=== PATIENT | female | born 2000 | race American Indian/Alaskan Native ===

== ENCOUNTER 2021-08-12 03:42 | Outpatient (CLI) | payer OTHER ==
[2021-08-12 05:03] VITALS: BP 103/60
--- NOTE | 2021-08-12 09:48 | Ultrasound Report ---
Limited OB Ultrasound Biophysical profile HISTORY: NO CARE - [facility]. TECHNIQUE: Grayscale and color imaging performed. COMPARISON: None FINDINGS: Single viable intrauterine gestation with cephalic presentation. ZORA was 8.8 cm. Heart rate was 133 b pm. Overall EGA was 36 weeks and 3 days by ultrasound compared to 38 weeks and 3 days clinically. Est imated delivery date is 09/03/2021. weight was 3091 g. On biophysical profile, the fetus received a score of 2 out of 2 for breathing, movement, posture/ton e, and ZORA. IMPRESSION: 1. Single viable intrauterine gestation as above. 2. Normal biophysical profile. Signer Name: Adama Timmons MD Signed: 08/12/2021 9:44 AM Workstation Name: [id number]
== END 2021-08-12 09:40 | disposition home or self-care (01) ==
LOC: TRG 03:42 → APU 03:45 → TRG 09:40
PROVIDERS: ATTEND Obstetrics & Gynecology
DX: O42.913 Preterm premature rupture of membranes, unspecified as to length of time between rupture and onset of labor, third trimester (principal); Z3A.38 38 weeks gestation of pregnancy
CPT/HCPCS: 36415; 59025; 76816; 76819; 84112